=== PATIENT | female | born 1960 | race Caucasian/White ===

== ENCOUNTER 2017-11-21 17:56 | Emergency (ER) | payer OTHER ==
[~2017-11-21] VITALS: Ht 157.5 cm; Wt 72.6 kg
[2017-11-21 18:13] VITALS: Ht 157.5 cm; Wt 72.6 kg
[2017-11-21 20:02] VITALS: BP 137/81
== END 2017-11-21 20:02 | disposition home or self-care (01) ==
LOC: ED 17:56
DX: S63.92XA Sprain of unspecified part of left wrist and hand, initial encounter (principal); S83.92XA Sprain of unspecified site of left knee, initial encounter; Z88.8 Allergy status to other drugs, medicaments and biological substances; Z88.1 Allergy status to other antibiotic agents; W18.39XA Other fall on same level, initial encounter; Y93.89 Activity, other specified; Y92.89 Other specified places as the place of occurrence of the external cause; Y99.8 Other external cause status
CPT/HCPCS: J1885; Q0092